=== PATIENT | male | born 1985 | race Hispanic/Latino ===

== ENCOUNTER 2019-06-30 11:47 | Emergency (ER) | payer BC, SELFPAY ==
[2019-06-30] MEDS ORDERED: HYDROCODONE/APAP 5/325 MG TAB ONE (13:32)
[2019-06-30] MEDS ORDERED: IBUPROFEN 400 MG TAB ONE (13:32)
--- NOTE | 2019-06-30 14:07 | ER ---
Nurse's Notes [facility] Name: Mike Galan Age: 34 yrs Sex: Male : 1985 Arrival Date: 06/30/2019 Time: 11:49 Bed 12 [facility] MD: Diagnosis: Sprain of foot Presentation: 06/30 12:18 Presenting complaint: Patient states: right ankle/foot injury yesterday. Transition of sv care: patient was not received from another setting of care. Onset of symptoms was June 29, 2019. Risk Assessment: Do you want to hurt yourself or someone else? Patient reports no desire to harm self or others. Care prior to arrival: None. 12:18 Method Of Arrival: Wheelchair sv 12:18 Acuity: IRAM 4 sv 12:18 Initial Sepsis Screen: Does the patient meet any 2 criteria? No. Patient's initial sv sepsis screen is negative. Does the patient have a suspected source of infection? No. Patient's initial sepsis screen is negative. Triage Assessment: 12:19 General: Appears in no apparent distress. uncomfortable, Behavior is calm, cooperative, sv appropriate for age. Pain: Complains of pain in right foot. Neuro: Level of Consciousness is awake, alert, obeys commands. Respiratory: Respiratory effort is even, unlabored, Respiratory pattern is regular, symmetrical. Historical: - Allergies: 12:18 No Known Allergies; sv - Immunization history:: Adult Immunizations up to date. - Social history:: Smoking status: unknown. - Ebola Screening: : No symptoms or risks identified at this time. Screenin:00 Abuse screen: Denies threats or abuse. Denies injuries from another. Nutritional sv screening: No deficits noted. Tuberculosis screening: No symptoms or risk factors identified. Fall Risk No fall in past 12 months (0 pts). No secondary diagnosis (0 pts). No IV (0 pts). Ambulatory Aid- None/Bed Rest/Nurse Assist (0 pts). Gait- Normal/Bed Rest/Wheelchair (0 pts) Mental Status- Oriented to own ability (0 pts). Total Castillo Fall Scale indicates No Risk (0-24 pts). Assessment: 13:00 Reassessment: Patient appears in no apparent distress at this time. No changes from sv previously documented assessment. See triage assessment. 13:00 General: Appears uncomfortable, Behavior is calm, cooperative. Pain: Complains of pain aa5 in lateral side of right foot and dorsum of right foot Pain does not radiate. Pain currently is 8 out of 10 on a pain scale. Quality of pain is described as aching, throbbing, Is continuous, Aggravated by weight bearing. Neuro: Level of Consciousness is awake, alert, obeys commands, Oriented to person, place, time, situation. Cardiovascular: Patient's skin is warm and dry. Respiratory: Airway is patent Respiratory effort is even, unlabored, Respiratory pattern is regular, symmetrical. GI: No signs and/or symptoms were reported involving the gastrointestinal system. : No signs and/or symptoms were reported regarding the genitourinary system. EENT: No signs and/or symptoms were reported regarding the EENT system. Derm: Skin is pink, warm \T\ dry. Bruising that is dark purple, on lateral side of right foot and dorsum of right foot. Musculoskeletal: Range of motion: intact in all extremities, Swelling present in lateral side of right foot and dorsum of right foot. 14:35 Reassessment: Jamie bandage and post-op shoe applied to right foot . aa5 14:35 Reassessment: Patient is alert, oriented x 3, equal unlabored respirations, skin aa5 warm/dry/pink. 14:35 General: Appears comfortable. aa5 Vital Signs: 12:18 BP 138 / 86; Pulse 76; Resp 16; Temp 98.3; Pulse Ox 98% ; Weight 92.99 kg; Height 5 ft. sv 11 in. (180.34 cm); Pain 8/10; 12:18 Body Mass Index 28.59 (92.99 kg, 180.34 cm) sv ED Course: 11:49 Patient arrived in ED. as 11:54 Huyen Tamayo FNP-C is PHCP. snw 11:54 Elliott Pa MD is Attending Physician. snw 12:18 Triage completed. sv 12:19 Arm band placed on. sv 13:00 Patient has correct armband on for positive identification. Adult w/ patient. sv 13:08 Namrata Delcid, RN is Primary Nurse. aa5 14:40 No provider procedures requiring assistance completed. Patient did not have IV access sv during this emergency room visit. Administered Medications: 13:33 Drug: [place] 5 mg-325 mg 1 tabs Route: PO; sg 14:40 Follow up: Response: No adverse reaction aa5 13:33 Drug: Motrin 400 mg Route: PO; sg 14:40 Follow up: Response: No adverse reaction aa5 Outcome: 14:06 Discharge ordered by . snsoy 14:40 Discharged to home ambulatory, with crutches, with significant other. aa5 14:40 Condition: stable 14:40 Discharge instructions given to patient, Instructed on discharge instructions, follow up and referral plans. medication usage, Demonstrated understanding of instructions, follow-up care, medications, Prescriptions given X 1. 14:41 Patient left the ED. aa5 Signatures: Concha Bowman RN RN Saurabh Kim RN RN sg Therrien, Shelly, A R COLLECTIONS REP-C A R COLLECTIONS REP-Cindy Crisostomo Audri RN RN aa5
--- NOTE | 2019-06-30 14:07 | EDPHYS ---
Physician Documentation [facility] Name: Mike Galan Age: 34 yrs Sex: Male : 1985 Arrival Date: 06/30/2019 Time: 11:49 Bed 12 Private MD: ED Physician Elliott Pa HPI: 06/30 13:16 This 34 yrs old Male presents to ER via Wheelchair with complaints of Foot snw Injury. 13:16 The patient presents with an injury. The complaints affect the lateral aspect of right snw foot and dorsum of right foot. Context: The problem was sustained outdoors, resulted from twisting of the extremity, sliding on a water slide with Son, the patient can partially bear weight. Onset: The symptoms/episode began/occurred suddenly, yesterday. Associated signs and symptoms: Pertinent positives: swelling, tenderness. Treatment prior to arrival includes: over the counter medications, applying pressure to the affected area. Severity of symptoms: At their worst the symptoms were moderate. The patient has not experienced similar symptoms in the past. The patient has not recently seen a physician. Historical: - Allergies: 12:18 No Known Allergies; sv - Immunization history:: Adult Immunizations up to date. - Social history:: Smoking status: unknown. - Ebola Screening: : No symptoms or risks identified at this time. ROS: 13:16 Constitutional: Negative for fever, chills, and weight loss, Eyes: Negative for injury, snw pain, redness, and discharge, ENT: Negative for injury, pain, and discharge, Neck: Negative for injury, pain, and swelling, Cardiovascular: Negative for chest pain, palpitations, and edema, Respiratory: Negative for shortness of breath, cough, wheezing, and pleuritic chest pain, Abdomen/GI: Negative for abdominal pain, nausea, vomiting, diarrhea, and constipation, Back: Negative for injury and pain, : Negative for injury, bleeding, discharge, and swelling, Skin: Negative for injury, rash, and discoloration, Neuro: Negative for headache, weakness, numbness, tingling, and seizure. 13:16 MS/extremity: Positive for injury or acute deformity, decreased range of motion, pain, swelling, tenderness, of the right foot. Exam: 13:12 Constitutional: This is a well developed, well nourished patient who is awake, alert, snw and in no acute distress. Head/Face: Normocephalic, atraumatic. Eyes: Pupils equal round and reactive to light, extra-ocular motions intact. Lids and lashes normal. Conjunctiva and sclera are non-icteric and not injected. Cornea within normal limits. Periorbital areas with no swelling, redness, or edema. ENT: Nares patent. No nasal discharge, no septal abnormalities noted. Tympanic membranes are normal and external auditory canals are clear. Oropharynx with no redness, swelling, or masses, exudates, or evidence of obstruction, uvula midline. Mucous membranes moist. Neck: Trachea midline, no thyromegaly or masses palpated, and no cervical lymphadenopathy. Supple, full range of motion without nuchal rigidity, or vertebral point tenderness. No Meningismus. Chest/axilla: Normal chest wall appearance and motion. Nontender with no deformity. No lesions are appreciated. Cardiovascular: Regular rate and rhythm with a normal S1 and S2. No gallops, murmurs, or rubs. Normal PMI, no JVD. No pulse deficits. Respiratory: Lungs have equal breath sounds bilaterally, clear to auscultation and percussion. No rales, rhonchi or wheezes noted. No increased work of breathing, no retractions or nasal flaring. Abdomen/GI: Soft, non-tender, with normal bowel sounds. No distension or tympany. No guarding or rebound. No evidence of tenderness throughout. Back: No spinal tenderness. No costovertebral tenderness. Full range of motion. Neuro: Awake and alert, GCS 15, oriented to person, place, time, and situation. Cranial nerves II-XII grossly intact. Motor strength 5/5 in all extremities. Sensory grossly intact. Cerebellar exam normal. Normal gait. Psych: Awake, alert, with orientation to person, place and time. Behavior, mood, and affect are within normal limits. 13:12 Skin: Appearance: normal except for affected area, injury, contusion(s), that are deep, of the right foot, + ecchymosis and tenderness. Vital Signs: 12:18 BP 138 / 86; Pulse 76; Resp 16; Temp 98.3; Pulse Ox 98% ; Weight 92.99 kg; Height 5 ft. sv 11 in. (180.34 cm); Pain 8/10; 12:18 Body Mass Index 28.59 (92.99 kg, 180.34 cm) sv MDM: 12:59 Patient medically screened. snw 14:14 Data reviewed: vital signs, nurses notes. Data interpreted: Pulse oximetry: on room air snw is 98 %. Interpretation: normal. Counseling: I had a detailed discussion with the patient and/or guardian regarding: the historical points, exam findings, and any diagnostic results supporting the discharge/admit diagnosis, the presence of at least one elevated blood pressure reading (>120/80) during this emergency department visit, radiology results, the need for outpatient follow up, to return to the emergency department if symptoms worsen or persist or if there are any questions or concerns that arise at home. Special discussion: Based on the history and exam findings, there is no indication for further emergent testing or inpatient evaluation. I discussed with the patient/guardian the need to see the orthopedic surgeon for further evaluation of the symptoms. I discussed with the patient/guardian the need to see the primary care provider for further evaluation of the symptoms. 14:14 Special discussion: I have referred the patient to see his PCP for further evaluation snw of high blood pressure. 06/30 12:19 Order name: Ankle Right 3 View XRAY sv 06/30 12:19 Order name: Foot Right 3 View XRAY sv 06/30 14:05 Order name: Jamie wrap-joint; Complete Time: 14:40 snw 06/30 14:05 Order name: Post-op shoe; Complete Time: 14:40 snw 06/30 14:18 Order name: Crutches; Complete Time: 14:40 snw 06/30 14:18 Order name: Crutch Training; Complete Time: 14:40 snw Administered Medications: 13:33 Drug: [place] 5 mg-325 mg 1 tabs Route: PO; sg 14:40 Follow up: Response: No adverse reaction aa5 13:33 Drug: Motrin 400 mg Route: PO; sg 14:40 Follow up: Response: No adverse reaction aa5 Disposition: 07/01 07:48 Co-signature as Attending Physician, Elliott Pa MD I agree with the assessment and antonina plan of care. Disposition: 06/30/19 14:06 Discharged to Home. Impression: Sprain of foot. - Condition is Stable. - Discharge Instructions: Elastic Bandage and RICE, Crutch Use, Foot Sprain. - Prescriptions for Diclofenac Sodium 75 mg Oral Tablet Sustained Release - take 1 tablet by ORAL route 2 times per day; 30 tablet. - Work release form, Medication Reconciliation Form, Thank You Letter, Antibiotic Education, Prescription Opioid Use form. - Follow up: Private Physician; When: 2 - 3 days; Reason: Recheck today's complaints, Continuance of care, Re-evaluation by your physician. Follow up: Emergency Department; When: As needed; Reason: Worsening of condition. Signatures: Dispatcher [employer] Concha Adan, RN RN Saurabh Kim RN RN sg Anderson, Corey, MD MD cha Therrien, Shelly, NEWSPAPER DISTRIBUTOR SUPERVISOR-C NEWSPAPER DISTRIBUTOR SUPERVISOR-Csnw Namrata Delcid, RN RN aa5 Corrections: (The following items were deleted from the chart) 06/30 14:41 14:06 06/30/2019 14:06 Discharged to Home. Impression: Sprain of foot. Condition is aa5 Stable. Forms are Medication Reconciliation Form, Thank You Letter, Antibiotic Education, Prescription Opioid Use. Follow up: Private Physician; When: 2 - 3 days; Reason: Recheck today's complaints, Continuance of care, Re-evaluation by your physician. Follow up: Emergency Department; When: As needed; Reason: Worsening of condition. snw
--- NOTE | 2019-06-30 14:11 | RAD REPORT ---
EXAM DESCRIPTION: RAD - Ankle Right 3 View - 06/30/2019 2:05 pm CLINICAL HISTORY: Right ankle pain FINDINGS: No fracture or dislocation is seen.
--- NOTE | 2019-06-30 14:11 | RAD REPORT ---
EXAM DESCRIPTION: RAD - Foot Right 3 View - 06/30/2019 2:05 pm CLINICAL HISTORY: Right foot pain status post injury FINDINGS: No fracture or dislocation is seen
[2019-06-30 15:00] VITALS: BP 138/86; TEMP 98.3; O2SAT 98
== END 2019-06-30 14:41 | disposition home or self-care (01) ==
LOC: ER 11:47
DX: S93.601A Unspecified sprain of right foot, initial encounter (principal); X50.1XXA Overexertion from prolonged static or awkward postures, initial encounter; Y93.18 Activity, surfing, windsurfing and boogie boarding; Y92.89 Other specified places as the place of occurrence of the external cause
CPT/HCPCS: 99283

== ENCOUNTER 2020-01-06 22:57 | Emergency (ER) | payer BC ==
--- NOTE | 2020-01-07 01:12 | EDPHYS ---
Physician Documentation [facility] Name: Mike Galan Age: 34 yrs Sex: Male : 1985 Arrival Date: 01/06/2020 Time: 22:59 Bed 19 Private MD: TEVIN Physician Elliott Pa HPI: 01/05 23:30 This 34 yrs old Male presents to ER via Ambulatory with complaints of Fever. kb 23:30 The patient or guardian reports flu symptoms, low-grade fever, myalgias. Onset: The kb symptoms/episode began/occurred yesterday. Severity of symptoms: At their worst the symptoms were mild, moderate, in the emergency department the symptoms are unchanged. Modifying factors: The symptoms are alleviated by nothing, the symptoms are aggravated by nothing. Associated signs and symptoms: Pertinent positives: fever, Pertinent negatives: chest pain, diarrhea, ear ache, nausea, rhinorrhea, sore throat, vomiting. The patient has not experienced similar symptoms in the past. The patient has not recently seen a physician. Pt reports he has had headache, fever, and body aches since yesterday. Thinks he could have gotten overheated while cutting the grass yesterday. Historical: - Allergies: 23:06 No Known Allergies; fc - Home Meds: 23:06 None [Active]; fc - PMHx: 23:06 None; fc - PSHx: 23:06 None; fc - Immunization history:: Last tetanus immunization: unknown, Flu vaccine is not up to date. - Social history:: Smoking status: Patient reports the use of cigarette tobacco products, smokes one-half pack cigarettes per day, Patient uses alcohol, occasionally. Patient/guardian denies using street drugs. ROS: 23:32 ENT: Negative for injury, pain, and discharge, Neck: Negative for injury, pain, and kb swelling, Cardiovascular: Negative for chest pain, palpitations, and edema, Respiratory: Negative for shortness of breath, cough, wheezing, and pleuritic chest pain, Abdomen/GI: Negative for abdominal pain, nausea, vomiting, diarrhea, and constipation, Back: Negative for injury and pain, MS/Extremity: Negative for injury and deformity, Skin: Negative for injury, rash, and discoloration. 23:32 Constitutional: Positive for body aches, fever, malaise. 23:32 Neuro: Positive for headache, Negative for altered mental status, dizziness, gait disturbance, hearing loss, loss of consciousness, numbness, seizure activity, speech changes, syncope, near syncope, tingling, tinnitus, tremor, visual changes, weakness. Exam: 23:33 Constitutional: This is a well developed, well nourished patient who is awake, alert, kb and in no acute distress. Head/Face: Normocephalic, atraumatic. ENT: Nares patent. No nasal discharge, no septal abnormalities noted. Tympanic membranes are normal and external auditory canals are clear. Oropharynx with no redness, swelling, or masses, exudates, or evidence of obstruction, uvula midline. Mucous membranes moist. Neck: Trachea midline, no thyromegaly or masses palpated, and no cervical lymphadenopathy. Supple, full range of motion without nuchal rigidity, or vertebral point tenderness. No Meningismus. Chest/axilla: Normal chest wall appearance and motion. Nontender with no deformity. No lesions are appreciated. Cardiovascular: Regular rate and rhythm with a normal S1 and S2. No gallops, murmurs, or rubs. Normal PMI, no JVD. No pulse deficits. Respiratory: Lungs have equal breath sounds bilaterally, clear to auscultation and percussion. No rales, rhonchi or wheezes noted. No increased work of breathing, no retractions or nasal flaring. Abdomen/GI: Soft, non-tender, with normal bowel sounds. No distension or tympany. No guarding or rebound. No evidence of tenderness throughout. Skin: Warm, dry with normal turgor. Normal color with no rashes, no lesions, and no evidence of cellulitis. MS/ Extremity: Pulses equal, no cyanosis. Neurovascular intact. Full, normal range of motion. Neuro: Awake and alert, GCS 15, oriented to person, place, time, and situation. Cranial nerves II-XII grossly intact. Motor strength 5/5 in all extremities. Sensory grossly intact. Cerebellar exam normal. Normal gait. 01/06 00:06 ECG was reviewed by the Attending Physician. kb Vital Signs: 01/05 23:01 BP 134 / 85; Pulse 82; Resp 18; Temp 98.1(O); Pulse Ox 98% on R/A; Weight 90.72 kg (R); fc Height 5 ft. 11 in. (180.34 cm) (R); Pain 4/10; 01/06 01:13 BP 118 / 86; Pulse 81; Resp 15; Temp 98.5; Pulse Ox 100% on R/A; rv 01/05 23:01 Body Mass Index 27.89 (90.72 kg, 180.34 cm) fc MDM: 01/05 23:07 Patient medically screened. [facility] 23:32 Data reviewed: vital signs, nurses notes. Data interpreted: Pulse oximetry: on room air kb is 98 %. Interpretation: normal. 01/06 01:08 Counseling: I had a detailed discussion with the patient and/or guardian regarding: the kb historical points, exam findings, and any diagnostic results supporting the discharge/admit diagnosis, lab results, the need for outpatient follow up, a family practitioner, to return to the emergency department if symptoms worsen or persist or if there are any questions or concerns that arise at home. 01/05 23:06 Order name: Flu; Complete Time: 01:05 kb 01/05 23:06 Order name: Strep kb 01/05 23:06 Order name: Urine Dipstick-Ancillary (obtain specimen); Complete Time: 01:07 kb 01/05 23:20 Order name: EKG; Complete Time: 23:20 kb 01/06 01:04 Order name: Throat Culture EDPR 01/06 01:09 Order name: Urine Dipstick--Ancillary (enter results) ar5 01/05 23:20 Order name: EKG - Nurse/Tech; Complete Time: 23:47 kb EC:06 Rate is 81 beats/min. Rhythm is regular. QRS [place] is Normal. WA interval is normal at kb 134 msec. QRS interval is normal at 72 msec. QT interval is normal at 358 msec. Administered Medications: No medications were administered Disposition: 07:34 Co-signature as Attending Physician, Elliott Pa MD I agree with the assessment and [facility] plan of care. Disposition: 01/07/20 01:09 Discharged to Home. Impression: Acute upper respiratory infection, unspecified. - Condition is Stable. - Discharge Instructions: Upper Respiratory Infection, Adult, [id number], Viral Respiratory Infection, [id number]. - Medication Reconciliation Form, Thank You Letter, Antibiotic Education, Prescription Opioid Use form. - Follow up: Emergency Department; When: As needed; Reason: Worsening of condition. Follow up: Private Physician; When: 2 - 3 days; Reason: Recheck today's complaints, Continuance of care, Re-evaluation by your physician. Signatures: Dispatcher [employer] Qing Mayorga, LINDSEY LEE-Elliott Robertson MD MD cha Chretien, Felicia, RN RN fc Cam Beatty RN RN rv Corrections: (The following items were deleted from the chart) 01:14 01:09 01/07/2020 01:09 Discharged to Home. Impression: Acute upper respiratory rv infection, unspecified. Condition is Stable. Forms are Medication Reconciliation Form, Thank You Letter, Antibiotic Education, Prescription Opioid Use. Follow up: Emergency Department; When: As needed; Reason: Worsening of condition. Follow up: Private Physician; When: 2 - 3 days; Reason: Recheck today's complaints, Continuance of care, Re-evaluation by your physician. kb
--- NOTE | 2020-01-07 01:12 | ER ---
Nurse's Notes [facility] Name: Mike Galan Age: 34 yrs Sex: Male : 1985 Arrival Date: 01/06/2020 Time: 22:59 Bed 19 Private MD: Diagnosis: Acute upper respiratory infection, unspecified Presentation: 01/05 23:01 Chief complaint: Patient states: that since yesterday he has had a headache, on/off fc fever (max 100) and on/off chest pain. States that he was working outside all day yesterday and is concerned that he may be dehydrated. Just wants to be checked out. Coronavirus screen: Patient denies fever greater than 100.4F, cough, shortness of breath, or difficulty breathing. Proceed with normal triage process. Ebola Screen: Patient negative for fever greater than or equal to 101.5 degrees Fahrenheit, and additional compatible Ebola Virus Disease symptoms Patient denies exposure to infectious person. Patient denies travel to an Ebola-affected area in the 21 days before illness onset. Initial Sepsis Screen: Does the patient meet any 2 criteria? No. Patient's initial sepsis screen is negative. Does the patient have a suspected source of infection? No. Patient's initial sepsis screen is negative. Risk Assessment: Do you want to hurt yourself or someone else? Patient reports no desire to harm self or others. Onset of symptoms was January 05, 2020. Care prior to arrival: Medication(s) given: Motrin, last at 0800 Tylenol, last at 2100. Transition of care: patient was not received from another setting of care. 23:01 Method Of Arrival: Ambulatory 23:01 Acuity: IRAM 4 fc Historical: - Allergies: 23:06 No Known Allergies; fc - Home Meds: 23:06 None [Active]; fc - PMHx: 23:06 None; fc - PSHx: 23:06 None; fc - Immunization history:: Last tetanus immunization: unknown, Flu vaccine is not up to date. - Social history:: Smoking status: Patient reports the use of cigarette tobacco products, smokes one-half pack cigarettes per day, Patient uses alcohol, occasionally. Patient/guardian denies using street drugs. Screenin:55 Abuse screen: Denies threats or abuse. Denies injuries from another. Nutritional rv screening: No deficits noted. Tuberculosis screening: No symptoms or risk factors identified. Fall Risk None identified. Assessment: 23:54 General: Appears in no apparent distress. Behavior is calm, cooperative. Pain: Denies rv pain. Neuro: Level of Consciousness is awake, alert, obeys commands, Oriented to person, place, time, situation. Cardiovascular: Patient's skin is warm and dry. Respiratory: Airway is patent Breath sounds are clear bilaterally. Derm: Skin is intact. Vital Signs: 23:01 BP 134 / 85; Pulse 82; Resp 18; Temp 98.1(O); Pulse Ox 98% on R/A; Weight 90.72 kg (R); fc Height 5 ft. 11 in. (180.34 cm) (R); Pain 4/10; 01/06 01:13 BP 118 / 86; Pulse 81; Resp 15; Temp 98.5; Pulse Ox 100% on R/A; rv 01/05 23:01 Body Mass Index 27.89 (90.72 kg, 180.34 cm) ED Course: 01/05 22:59 Patient arrived in ED. cl3 23:01 Qing Tesfaye FNP-C is [facility]. kb 23:01 Elliott Pa MD is Attending Physician. kb 23:05 Triage completed. fc 23:06 Arm band placed on Patient placed in an exam room, on a stretcher. 23:29 Cam Beatty, RN is Primary Nurse. rv 23:55 Patient has correct armband on for positive identification. Pulse ox on. NIBP on. rv 01/06 01:13 No provider procedures requiring assistance completed. Patient did not have IV access rv during this emergency room visit. Administered Medications: No medications were administered Outcome: 01:09 Discharge ordered by . kb 01:14 Discharged to home ambulatory. rv 01:14 Condition: good 01:14 Discharge instructions given to patient, Instructed on discharge instructions, follow up and referral plans. Demonstrated understanding of instructions, follow-up care. 01:14 Patient left the ED. rv Signatures: Qing Tesfaye FNP-C FNP-Ckb Chretien, Felicia, RN RN Cam Beatty, MAXIMILIANO RN rv Ami Torres cl3
[2020-01-07 01:22] VITALS: BP 118/86; TEMP 98.5; O2SAT 100
[2020-01-07 01:59] LABS: Urine Blood NEGATIVE (NEG); Urine Glucose NEGATIVE (NEG); Urine Protein NEGATIVE (NEG); Urine Specific Gravity >1.030 (1.005-1.030); Urine pH 5.5 (5.0-7.0)
--- NOTE | 2020-01-07 10:57 | EKG ---
Test Date: 2020-01-06 Test Time: 23:35:29 [employer]: RV MEASUREMENT RESULTS: Intervals: Rate: 81 NV: 134 QRSD: 72 QT: 358 QTc: 415 [place]: P: 44 NV: 134 QRS: 17 T: 22 INTERPRETIVE STATEMENTS: Normal sinus rhythm Nonspecific T wave abnormality Abnormal ECG No previous ECG available for comparison Electronically Signed On 01-07-20 10:56:08 CDT by Shashank Ventura
== END 2020-01-07 01:14 | disposition home or self-care (01) ==
LOC: ER 22:57
DX: J06.9 Acute upper respiratory infection, unspecified (principal); F17.210 Nicotine dependence, cigarettes, uncomplicated
CPT/HCPCS: 81003; 87070; 87081; 87804; 93005; 99283

== ENCOUNTER 2023-09-05 21:23 | Emergency (ER) | payer BC, SELFPAY ==
[2023-09-05 21:51] LABS: Absolute Lymphocytes (CBC) 4.3 K/uL (0.7-4.9); Hematocrit 46.4 % (39.6-49.0); Lymphocytes % 34.6 % (15.3-44.8); MCV 91.1 fL (80-100); MPV 7.3 fL (7.6-11.3); Platelets 343 thou/uL (152-406); RBC Red Blood Cell Count 5.09 M/uL (4.33-5.43)
[2023-09-05] MEDS ORDERED: DIAZEPAM 5 MG TABLET ONE (22:18)
--- NOTE | 2023-09-05 22:18 | RAD REPORT ---
EXAM DESCRIPTION: RAD - Chest Single View - 09/05/2023 10:05 pm CLINICAL HISTORY: numbness face Chest pain. COMPARISON: No comparisons FINDINGS: Portable technique limits examination quality. The lungs are grossly clear. The heart is upper limit of normal in size. No displaced fractures. IMPRESSION: No acute intrathoracic process suspected.
[2023-09-05 22:24] LABS: Protime INR 1.01
--- NOTE | 2023-09-05 22:27 | RAD REPORT ---
EXAM DESCRIPTION: CT - Head Brain Wo Cont - 09/05/2023 10:18 pm CLINICAL HISTORY: facial numbness Headache, drowsiness COMPARISON: <Comparisons> TECHNIQUE: All CT scans are performed using dose optimization technique as appropriate and may inclu de automated exposure control or mA/KV adjustment according to patient size. FINDINGS: No intracranial hemorrhage, hydrocephalus or extra-axial fluid collection.No areas of brai n edema or evidence of midline shift. The paranasal sinuses and mastoids are clear. The calvarium is intact. IMPRESSION: No acute intracranial abnormality.
[2023-09-05 22:44] LABS: ALT/SGPT 44 U/L (16-61); Albumin 3.5 g/dL (3.4-5.0); Alkaline Phosphatase 94 U/L (45-117); BUN Blood Urea Nitrogen 22 mg/dL (7-18); Bicarbonate 22 mEq/L (21-32); Bilirubin Total 0.4 mg/dL (0.2-1.0); Glomerular Filtration Rate 99 ml/min (=/>90); Glucose Level 119 mg/dL (74-106); NT PRO-BNP 5 pg/mL (<125); Protein, Total 7.4 g/dL (6.4-8.2); Sodium Level 135 mEq/L (136-145); Troponin High Sensitivity 6.1 pg/mL (<58.9)
[2023-09-05 22:45] LABS: AST/SGOT 20 U/L (15-37); Bilirubin Direct < 0.1 mg/dL (0-0.2); Bilirubin Indirect, Calculated ND mg/dL (0.2-0.8)
[2023-09-05 22:46] LABS: Magnesium 2.2 mg/dL (1.6-2.4); Potassium 3.6 mEq/L (3.5-5.1)
--- NOTE | 2023-09-06 00:54 | EDPHYS ---
Physician Documentation [facility] Name: Mike Galan Age: 38 yrs Sex: Male : 1985 Arrival Date: 09/05/2023 Time: 21:23 Bed 4 Private MD: ED Physician Maurilio Friedman HPI: 09/05 21:30 This 38 yrs old Male presents to ER via Unassigned with complaints of FACIAL sp4 NUMBNESS/TINGLING, NUMBNESS/TINGLING IN LOW EXT. 09/06 00:42 Patient is 38-year-old male presents with acute onset of facial numbness tingling sp4 bilateral arm and lower extremity tingling sudden onset about 45 minutes prior to arrival . Had any weakness or chest pain. . Historical: - Allergies: 09/05 21:33 No Known Allergies; cm10 - PMHx: 21:33 Diabetes mellitus; Hypertensive disorder; Hypercholesterolemia; cm10 - Immunization history:: Adult Immunizations unknown. - Social history:: Smoking status: Patient reports the use of cigarette tobacco products, smokes one pack cigarettes per day. - Family history:: not pertinent. ROS: 09/06 00:42 Constitutional: Negative for fever, chills, and weight loss, positive perioral sp4 numbness, bilateral hand and leg numbness. Feeling unwell. All other systems are negative, Exam: 00:42 Constitutional: This is a well developed, well nourished patient who is awake, alert, sp4 and in no acute distress. Head/Face: Normocephalic, atraumatic. Eyes: Pupils equal round and reactive to light, extra-ocular motions intact. Lids and lashes normal. Conjunctiva and sclera are not injected. Cornea within normal limits. Periorbital areas with no swelling, redness, or edema. ENT: Nares patent. No nasal discharge, no septal abnormalities noted. Tympanic membranes are normal and external auditory canals are clear. Oropharynx with no redness, swelling, or masses, exudates, or evidence of obstruction, uvula midline. Mucous membranes moist. Neck: Trachea midline, no thyromegaly or masses palpated, and no cervical lymphadenopathy. Supple, full range of motion without nuchal rigidity, or vertebral point tenderness. Chest/axilla: Normal chest wall appearance and motion. Nontender with no deformity. No lesions are appreciated. Cardiovascular: Regular rate and rhythm with a normal S1 and S2. No gallops, murmurs, or rubs. Normal PMI, no JVD. No pulse deficits. Respiratory: Lungs have equal breath sounds bilaterally, clear to auscultation and percussion. No rales, rhonchi or wheezes noted. No increased work of breathing, no retractions or nasal flaring. Abdomen/GI: Soft, non-tender, with normal bowel sounds. No distension or tympany. No guarding or rebound. No evidence of tenderness throughout. Back: No spinal tenderness. No costovertebral tenderness. Skin: Warm, dry with normal turgor. Normal color with no rashes, no lesions, and no evidence of cellulitis. MS/ Extremity: Pulses equal, no cyanosis. Neurovascular intact. Full, normal range of motion. Neuro: Awake and alert, GCS 15, oriented to person, place, time, and situation. Cranial nerves II-XII grossly intact. Motor strength 5/5 in all extremities. Sensory grossly intact. Psych: Awake, alert, with orientation to person, place and time. Behavior, mood, and affect are within normal limits 00:42 ECG was reviewed by the Attending Physician. EKG time 2146, rate 80 bpm normal sinus sp4 rhythm with premature atrial complexes. Otherwise EKG is normal Vital Signs: 09/05 21:31 BP 160 / 115; Pulse 78; Resp 18 S; Temp 97.1(IR); Pulse Ox 98% on R/A; Weight 102.06 cm10 kg; Height 5 ft. 11 in. ; Pain 0/10; 23:06 BP 138 / 92; Pulse 78; Resp 23; Pulse Ox 98% on R/A; jb4 09/06 00:15 BP 106 / 63; Pulse 74; Resp 16; Pulse Ox 97% on R/A; jb4 09/05 21:31 Body Mass Index 31.38 (102.06 kg, 180.34 cm) cm10 09/05 21:31 Pain Scale: Adult cm10 NIH Stroke Scale Scores: 09/05 21:56 NIHSS Score: 0 sp4 Charan Coma Score: 21:56 Eye Response: spontaneous(4). Motor Response: obeys commands(6). Verbal Response: sp4 oriented(5). Total: 15. MDM: 21:29 Patient medically screened. 4 09/06 00:42 Differential Diagnosis altered mental status, sepsis, flu. Data reviewed: vital signs, sp4 nurses notes, old medical records, lab test result(s), EKG, radiologic studies, CT scan, plain films. Consideration of Admission/Observation Escalation of care including admission/observation considered. ED course: Patient appears to have anxiety attack. No sign of CVA or any other significant medical condition. Patient stable for discharge home. Patient was advised to restart his antihypertensives. . 09/05 21:30 Order name: Basic Metabolic Panel; Complete Time: 00: 4 09/05 21:30 Order name: CBC with Diff; Complete Time: : 4 09/05 21:30 Order name: LFT's; Complete Time: : 4 09/05 21:30 Order name: Magnesium; Complete Time: : 4 09/05 21:30 Order name: NT PRO-BNP; Complete Time: : 4 09/05 21:30 Order name: PT-INR; Complete Time: : sp4 09/05 21:30 Order name: Troponin HS; Complete Time: 00: sp4 09/05 21:30 Order name: XRAY Chest (1 view); Complete Time: : 4 09/05 21:31 Order name: CT Head Brain wo Cont; Complete Time: : sp4 09/05 21:30 Order name: EKG; Complete Time: 21:31 4 09/05 21:30 Order name: Cardiac monitoring; Complete Time: : 4 09/05 21:30 Order name: EKG - Nurse/Tech; Complete Time: : sp4 09/05 21:30 Order name: IV Saline Lock; Complete Time: : 4 09/05 21:30 Order name: Labs collected and sent; Complete Time: : 4 09/05 21:30 Order name: O2 Per Protocol; Complete Time: : 4 09/05 21:30 Order name: O2 Sat Monitoring; Complete Time: : sp4 EC:42 Rate is 80 beats/min. Rhythm is irregular, Sinus Rhythm with PACs. QRS [place] is Normal. sp4 [place] interval is normal. QRS interval is normal. QT interval is normal. No Q waves. T waves are Normal. No ST changes noted. Clinical impression: No evidence of ischemia. Interpreted by me. Reviewed by me. Administered Medications: 09/05 22:11 Drug: Diazepam PO 5 mg PO once Route: PO; jb4 Disposition Summary: 09/06/23 00:53 Discharge Ordered Problem: new sp4 Symptoms: have improved sp4 Condition: Stable sp4 Diagnosis - Anxiety disorder, unspecified sp4 - Anxiety attack, elevated blood pressure, hypertension, noncompliance with sp4 medications Followup: sp4 - With: Private Physician - When: 7 - 10 days - Reason: Recheck today's complaints Discharge Instructions: - Discharge Summary Sheet sp4 - Hypertension, Adult, [id number] sp4 Forms: - Patient Portal Instructions sp4 NIH Stroke Scale - NIH Stroke Score Date: 09/05/2023 Time: 21:56 Total Score = 0 10. Dysarthria (speech clarity - read or repeat words) - 0(Normal) 11. Extinction and Inattention (visual/tactile/auditory/spatial/personal) - 0(No abnormality) 1a. Level of Consciousness (LOC) - 0(Alert) 1b. Level of Consciousness (LOC) (Month \T\ Age) - 0(Both) 1c. LOC Commands (Open \T\ Closes Eyes/In Store Banker) - 0(Both) 2. Best Gaze (Lateral Gaze Paresis) - 0(Normal) 3. Visual Field Loss - 0(No visual loss) 4. Facial Palsy - 0(Normal) 5a. Left Arm: Motor (10-second hold) - 0(No drift) 5b. Right Arm: Motor (10-second hold) - 0(No drift) 6a. Left Leg: Motor (5-second hold - always test supine) - 0(No drift) 6b. Right Leg: Motor (5-second hold - always test supine) - 0(No drift) 7. Limb Ataxia (finger/nose \T\ heel/loredo - test with eyes open) - 0(Absent) 8. Sensory Loss (pinprick arms/legs/face) - 0(Normal) 9. Best Language: Aphasia (description/naming/reading) - 0(No aphasia) Initials: sp4 Signatures: Dispatcher [employer] EDMS Jad Coleman, MAXIMILIANO VIERA jb4 Maurilio Friedman MD MD sp4 Ba, Bettie, RN RN cm10
--- NOTE | 2023-09-06 00:54 | ER ---
Nurse's Notes [facility] Name: Mike Galan Age: 38 yrs Sex: Male : 1985 Arrival Date: 09/05/2023 Time: 21:23 Bed 4 Private MD: Diagnosis: Anxiety disorder, unspecified;Anxiety attack, elevated blood pressure, hypertension, noncompliance with medications Presentation: 09/05 21:31 Chief complaint: Patient states: Numbness to left arm, front of face and bilateral legs cm10 onset at 2100. Pt states that before the numbness began he was thirsty and drank water. After drinking water the numbness began. Pt able to ambulate to room with steady gait. Coronavirus screen: Vaccine status: Patient reports being unvaccinated. Client denies travel out of the [place] in the last 14 days. Ebola Screen: Patient denies travel to an Ebola-affected area in the 21 days before illness onset. No symptoms or risks identified at this time. Initial Sepsis Screen: Does the patient meet any 2 criteria? No. Patient's initial sepsis screen is negative. Does the patient have a suspected source of infection? No. Patient's initial sepsis screen is negative. Risk Assessment: Do you want to hurt yourself or someone else? Patient reports no desire to harm self or others. Onset of symptoms was September 05, 2023 at 21:00. 21:31 Method Of Arrival: Ambulatory cm10 21:31 Acuity: IRAM 3 cm10 Historical: - Allergies: 21:33 No Known Allergies; cm10 - PMHx: 21:33 Diabetes mellitus; Hypertensive disorder; Hypercholesterolemia; cm10 - Immunization history:: Adult Immunizations unknown. - Social history:: Smoking status: Patient reports the use of cigarette tobacco products, smokes one pack cigarettes per day. - Family history:: not pertinent. Screenin/23 00:15 [facility] ED Fall Risk Assessment (Adult) History of falling in the last 3 months, jb4 including since admission No falls in past 3 months (0 pts) Confusion or Disorientation No (0 pts). Abuse screen: Denies threats or abuse. Nutritional screening: No deficits noted. Tuberculosis screening: No symptoms or risk factors identified. Assessment: 09/05 21:45 General: Appears in no apparent distress. comfortable, Behavior is calm, cooperative, jb4 appropriate for age. Pain: Denies pain. Neuro: Level of Consciousness is awake, alert, obeys commands, Oriented to person, place, time, situation, Reports numbness in face, right leg and left leg. Cardiovascular: Patient's skin is warm and dry. Respiratory: Airway is patent Respiratory effort is even, unlabored, Respiratory pattern is regular, symmetrical. GI: No signs and/or symptoms were reported involving the gastrointestinal system. : No signs and/or symptoms were reported regarding the genitourinary system. EENT: No signs and/or symptoms were reported regarding the EENT system. Derm: Skin is intact, Skin is pink, warm \T\ dry. 23:06 Reassessment: Patient appears in no apparent distress at this time. Patient and/or jb4 family updated on plan of care and expected duration. Pain level reassessed. Patient is alert, oriented x 3, equal unlabored respirations, skin warm/dry/pink. 09/06 00:00 Reassessment: Patient appears in no apparent distress at this time. Patient and/or jb4 family updated on plan of care and expected duration. Pain level reassessed. Patient is alert, oriented x 3, equal unlabored respirations, skin warm/dry/pink. 00:58 Reassessment: Patient appears in no apparent distress at this time. Patient and/or jb4 family updated on plan of care and expected duration. Pain level reassessed. Patient is alert, oriented x 3, equal unlabored respirations, skin warm/dry/pink. Patient states feeling better. Vital Signs: 09/05 21:31 BP 160 / 115; Pulse 78; Resp 18 S; Temp 97.1(IR); Pulse Ox 98% on R/A; Weight 102.06 cm10 kg; Height 5 ft. 11 in. ; Pain 0/10; 23:06 BP 138 / 92; Pulse 78; Resp 23; Pulse Ox 98% on R/A; jb4 09/06 00:15 BP 106 / 63; Pulse 74; Resp 16; Pulse Ox 97% on R/A; jb4 09/05 21:31 Body Mass Index 31.38 (102.06 kg, 180.34 cm) cm10 09/05 21:31 Pain Scale: Adult cm10 [place] Coma Score: 09/05 21:56 Eye Response: spontaneous(4). Motor Response: obeys commands(6). Verbal Response: sp4 oriented(5). Total: 15. NIH Stroke Scale Scores: 21:56 NIHSS Score: 0 sp4 ED Course: 21:25 Patient arrived in ED. jj6 21:26 Maurilio Friedman MD is Attending Physician. sp4 21:33 Triage completed. cm10 21:33 Arm band placed on Patient placed in an exam room, on a stretcher. cm10 21:41 Inserted saline lock: 20 gauge in right forearm, using aseptic technique. Blood mc5 collected. 22:06 XRAY Chest (1 view) In Process Unspecified. EDMS 22:20 CT Head Brain wo Cont In Process Unspecified. EDMS 23:06 Jad Coleman, RN is Primary Nurse. jb4 09/06 00:15 Patient has correct armband on for positive identification. Bed in low position. Call jb4 light in reach. Side rails up X 1. 01:00 No provider procedures requiring assistance completed. IV discontinued, intact, jb4 bleeding controlled, No redness/swelling at site. Pressure dressing applied. Administered Medications: 09/05 22:11 Drug: Diazepam PO 5 mg PO once Route: PO; jb4 Outcome: 09/06 00:53 Discharge ordered by . sp4 01:00 Discharged to home ambulatory, jb4 01:00 Condition: stable 01:00 Discharge instructions given to Pt left prior to receiving discharge instructions. 01:01 Patient left the ED. jb4 NIH Stroke Scale - NIH Stroke Score Date: 09/05/2023 Time: 21:56 Total Score = 0 10. Dysarthria (speech clarity - read or repeat words) - 0(Normal) 11. Extinction and Inattention (visual/tactile/auditory/spatial/personal) - 0(No abnormality) 1a. Level of Consciousness (LOC) - 0(Alert) 1b. Level of Consciousness (LOC) (Month \T\ Age) - 0(Both) 1c. LOC Commands (Open \T\ Closes Eyes/New Business Clerk) - 0(Both) 2. Best Gaze (Lateral Gaze Paresis) - 0(Normal) 3. Visual Field Loss - 0(No visual loss) 4. Facial Palsy - 0(Normal) 5a. Left Arm: Motor (10-second hold) - 0(No drift) 5b. Right Arm: Motor (10-second hold) - 0(No drift) 6a. Left Leg: Motor (5-second hold - always test supine) - 0(No drift) 6b. Right Leg: Motor (5-second hold - always test supine) - 0(No drift) 7. Limb Ataxia (finger/nose \T\ heel/loredo - test with eyes open) - 0(Absent) 8. Sensory Loss (pinprick arms/legs/face) - 0(Normal) 9. Best Language: Aphasia (description/naming/reading) - 0(No aphasia) Initials: sp4 Signatures: Dispatcher [employer] EDJad Alvarez RN RN jb4 Asha [id number] Maurilio Friedman MD MD sp4 Bettie Cosme RN RN cm10 Zee Schuster 5
[2023-09-06 01:40] VITALS: TEMP 97.1
[2023-09-06 01:44] VITALS: BP 106/63; O2SAT 97
--- NOTE | 2023-09-10 16:59 | EKG ---
Test Date: 2023-09-05 Test Time: 21:46:42 [employer]: [facility] MEASUREMENT RESULTS: Intervals: Rate: 80 NV: 126 QRSD: 76 QT: 384 QTc: 442 [place]: P: 56 NV: 126 QRS: 3 T: 39 INTERPRETIVE STATEMENTS: Sinus rhythm with premature atrial complexes Otherwise normal ECG Compared to ECG 01/06/2020 23:35:29 Atrial premature complex(es) now present T-wave abnormality no longer present Electronically Signed On 09-10-23 16:53:53 [employer] SCOOTER REPAIRER by Booker Johnsno
== END 2023-09-06 01:01 | disposition home or self-care (01) ==
LOC: ER 21:23
DX: F41.9 Anxiety disorder, unspecified (principal); I10 Essential (primary) hypertension; E11.9 Type 2 diabetes mellitus without complications; E78.00 Pure hypercholesterolemia, unspecified; Z91.148 Patient's other noncompliance with medication regimen for other reason; F17.210 Nicotine dependence, cigarettes, uncomplicated
CPT/HCPCS: 36415; 70450; 71045; 80048; 80076; 83735; 83880; 84484; 85025; 85610; 93005; 99284